=== PATIENT | male | born 2000 | race Caucasian/White ===

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

== ENCOUNTER 2023-02-08 16:22 | Emergency (ER) | payer BC, MEDICAID, SELFPAY ==
[2023-02-08 16:36] VITALS: PULSE 81; RESP 16; TEMP 36.8; O2SAT 95; BMI 23.6
--- NOTE | 2023-02-08 17:38 | CTR_ITS ---
PROCEDURE INFORMATION: Exam: CT Abdomen And Pelvis With Contrast Exam date and time: 02/08/2023 7:47 PM Age: 22 years old Clinical indication: Abdominal pain; Localized; Right lower quadrant (rlq); Patient HX: Rlq pain; Additional info: Rlq pain, dysuria, ? hematuria TECHNIQUE: Imaging protocol: Computed tomography of the abdomen and pelvis with contrast. Radiation optimization: All CT scans at this facility use at least one of these dose optimization techniques: automated exposure control; mA and/or kV adjustment per patient size (includes targeted exams where dose is matched to clinical indication); or iterative reconstruction. Contrast material: OMNI 350; Contrast volume: 100 ml; Contrast route: INTRAVENOUS (IV); REPORTING DATA: Count of CT and Cardiac NM exams in prior 12 months: This patient has received 0 known CTs and 0 known cardiac nuclear medicine studies in the 12 months prior to the current study. COMPARISON: No relevant prior studies available. RADIATION DOSE METRICS: Total DLP (mGy-cm): 403.93 FINDINGS: Liver: Normal. No mass. Gallbladder and bile ducts: Normal. No calcified stones. No ductal dilation. Pancreas: Normal. No ductal dilation. Spleen: Normal. No splenomegaly. Adrenal glands: Normal. No mass. Kidneys and ureters: Normal. No hydronephrosis. Stomach and bowel: Unremarkable. No obstruction. No mucosal thickening. Appendix: No evidence of appendicitis. Intraperitoneal space: Unremarkable. No free air. No significant fluid collection. Vasculature: Unremarkable. No abdominal aortic aneurysm. Lymph nodes: Unremarkable. No enlarged lymph nodes. Urinary bladder: Unremarkable as visualized. Reproductive: Unremarkable as visualized. Bones/joints: No acute fracture. Soft tissues: Unremarkable. CT/CT abdomen pelvis w con* [id number] IMPRESSION: No acute findings.
[2023-02-08 17:43] VITALS: BP 106/69; PULSE 73; O2SAT 97
[2023-02-08 18:00] VITALS: BP 106/62; PULSE 76; O2SAT 96
[2023-02-08 18:24] LABS: Add Urine Microscopic? YES; Bilirubin Urine Neg (Negative); Blood Urine Trace (Negative); Glucose Urine UA Norm (Normal); Ketones Urine Negative (Negative); Leukocyte Esterase Urine 2+ (Negative); Nitrate Urine Negative (Negative); Protein Urine Neg (Negative); Urine Appearance Cloudy (CLEAR); Urine Color Yellow (Yellow); Urobilinogen Urine 4+ mg/dL (Negative); pH Urine 6.5 (5-7)
[2023-02-08 18:27] LABS: Add Urine Culture? No; Bacteria Urine TRACE /hpf; Mucus Urine 1+ /hpf; RBC Urine 0-4 /hpf (0-2); Squamous Epithelial Cell Urine 0-4 /hpf (0-5); WBC Urine TOO NUMEROUS TO CNT /hpf (0-5)
--- NOTE | 2023-02-08 18:31 | W.ED.ABDPA2 ---
HPI - Abdominal Pain General: Chief Complaint: Abdominal Pain Stated Complaint: abd pain Time Seen by Provider: 02/08/23 17:12 History of Present Illness: 22-year-old male reports 3 days of right lower quadrant pain and burning urination. He believes that his urine has been sort of a reddish color. He denies any flank pain. He is not having any fever, chills, anorexia. He thinks there is a very low likelihood that he might have a sexually transmitted infection. He is not seeing any penile discharge rashes or wounds. He denies any trauma. There is no vomiting, nausea, diarrhea, constipation, melena, hematochezia. No testicular pain. He has not appreciated any masses or hernias. Pain is minimal while he is holding still and not moving. It becomes moderate when he urinates. No history of kidney stones. Associated Symptoms: Denies chills, diarrhea, fever(s), nausea, syncope and vomiting Review of Systems General: Reports: 10 or more systems reviewed and unremarkable except in HPI and below Const: Denies: fever(s), chills or body aches Eyes: Denies: change in vision ENMT: Denies: throat pain Card: Denies: chest pain, edema or syncope Resp: Denies: dyspnea or productive cough GI: Denies: nausea, vomiting or diarrhea : Denies: flank pain or urinary frequency Musc: Denies: neck pain, back pain, extremity pain or extremity swelling Skin/Breast: Denies: rash or erythema Neuro: Denies: headache(s), numbness in extremities, weakness in extremities, lack of coordination or difficulty walking PFS ED PFSH: Social History (Updated 11/24/20 @ 10:06 by Kendall Smith LPN) Smoking and tobacco/nicotine status: current every day tobacco/nicotine user Physical Exam Const: COMMON NORMALS: no limitations, alert and well nourished EXAM LIMITATIONS: no altered mental status HENMT: COMMON NORMALS: normocephalic, atraumatic and external ears normal HEAD & SCALP: normocephalic and atraumatic EXTERNAL EAR: Yes external ears normal MOUTH: no muffled voice Eye: COMMON NORMALS: EOMs intact bilaterally, conjunctivae normal and no scleral icterus CONJUNCTIVA: Yes conjunctivae normal Neck/C-Spine: COMMON NORMALS: no JVD GENERAL: Yes normal visual inspection and Yes trachea midline Resp: COMMON NORMALS: normal respiratory effort, No use of accessory muscles and clear to auscultation bilaterally AUSCULTATION: clear to auscultation bilaterally Cardio: COMMON NORMALS: no JVD, regular rate and regular rhythm RATE: regular rate RHYTHM: regular rhythm GI: COMMON NORMALS: Soft to palpation PALPATION: Yes Soft to palpation, No Firmness to palpation present (GI), Yes Tenderness to palpation present (GI) Details: RLQ, No Guarding due to palpation present (GI), No Rigid due to palpation, No Hepatosplenomegaly present, No Hernia present, No Palpable mass present and No Ascites present OTHER: Positive right CVA versus right lumbar tenderness. Extremity: COMMON NORMALS: normal to inspection Neuro: COMMON NORMALS: moves all extremities, no focal motor deficits and no sensory deficits noted SENSORIUM/ORIENTATION: Yes alert SPEECH: speech normal Psych: COMMON NORMALS: mental status grossly normal, Normal thought process present, cooperative, normal affect and speech normal SPEECH: Yes normal speech THOUGHT PROCESS: Normal thought process present Skin: COMMON NORMALS: no rashes or lesions noted, turgor normal and no jaundice GENERAL SKIN EXAM: no rashes or lesions noted and turgor normal Course Vital Signs: Vital signs: Vital Signs Temperature 98.2 F 02/08/23 16:36 Pulse Rate 57 L 02/08/23 19:28 Respiratory Rate 16 02/08/23 16:36 Blood Pressure 125/81 02/08/23 19:28 Pulse Oximetry 97 02/08/23 19:28 Oxygen Delivery Me thod Room Air 02/08/23 19:28 MDM - Abdominal Pain Medical Decision Making Differential diagnosis includes UTI, kidney stone, gonorrhea or chlamydia, pyelonephritis, colitis, constipation, mesenteric adenitis, appendicitis, other. CT scan of the abdomen and pelvis was unremarkable. Labs were unremarkable. Urine analysis was remarkable for urobilinogen, white blood cells, leukocyte Estrace. No bacteria were seen. There was some mucus. Urine culture is pending. Gonorrhea and Chlamydia cultures have been sent. Patient will be treated empirically with Rocephin here and doxycycline on discharge. Follow-up outpatient advised. Refrain from sexual activity until gonorrhea chlamydia results Lab Data 02/08/23 19:35 02/08/23 19:35 Labs/Radiology: Radiology Impressions Abdomen/Pelvis CT 02/08/23 17:38 IMPRESSION: No acute findings. Laboratory Results WBC 9.06 10^3/uL (3.29-11.43) 02/08/23 19:35 RBC 5.43 10^6/uL (3.85-5.65) 02/08/23 19:35 Hgb 15.60 g/dL (11.27-16.99) 02/08/23 19:35 Hct 47.1 % (37-53) 02/08/23 19:35 MCV 86.7 fl (82-101) 02/08/23 19:35 MCH 28.7 pg (27-33) 02/08/23 19: MCHC 33.1 g/dL (30-55) 02/08/23 19:35 RDW 12.0 % (12.1-15.1) L 02/08/23 19:35 Plt Count 239 10^3/cmm (157-399) 02/08/23 19:35 MPV 10.4 fL (7.4-10.4) 02/08/23 19:35 Neut % (Auto) 63.8 % 02/08/23 19:35 Lymph % (Auto) 22.5 % 02/08/23 19:35 [place] % (Auto) 9.2 % 02/08/23 19:35 Eos % (Auto) 3.4 % 02/08/23 19:35 Baso % (Auto) 0.9 % 02/08/23 19:35 Neut # (Auto) 5.78 10^3/uL (1.8-7.7) 02/08/23 19:35 Lymph # (Auto) 2.0 10^3/uL (0.8-4.8) 02/08/23 19:35 [place] # (Auto) 0.8 10^3/uL (0.2-0.9) 02/08/23 19:35 Eos # (Auto) 0.3 10^3/uL (0.0-0.8) 02/08/23 19:35 Baso # (Auto) 0.1 10^3/uL (0.0-0.1) 02/08/23 19:35 Nucleated RBC % (auto) 0 % 02/08/23 19:35 Nucleated RBCs # 0.0 /100WBC 10/26/23 19:35 Sodium 137 mmol/L (136-145) 02/08/23 19:35 Potassium 4.1 mmol/L (3.5-5.1) 02/08/23 19:35 Chloride 101 mmol/L (98-107) 02/08/23 19:35 Carbon Dioxide 28 mmol/L (22-29) 02/08/23 19:35 Anion Gap 12.1 (5-19) 02/08/23 19:35 BUN 9 mg/dL (6-20) 02/08/23 19:35 Creatinine 0.7 mg/dL (0.7-1.2) 02/08/23 19:35 GFR Calculation 142.4 mL/min (90-130) H 02/08/23 19:35 Glucose 86 mg/dL (65-115) 02/08/23 19:35 Calculated Osmolality 282 mOsm/kg (285-295) L 02/08/23 19:35 Calcium 9.0 mg/dL (8.5-10.5) 02/08/23 19:35 Total Bilirubin 0.3 mg/dL (0.15-1.2) 02/08/23 19:35 AST 14 U/L (0-40) 02/08/23 19:35 ALT 19 U/L (0-41) 02/08/23 19:35 Alkaline Phosphatase 61 U/L (40-130) 02/08/23 19:35 Total Protein 7.1 g/dL (6.6-8.7) 02/08/23 19:35 Albumin 4.5 g/dL (3.5-5.2) 02/08/23 19:35 Globulin 2.6 g/dL (1.3-4.6) 02/08/23 19:35 Urine Color Yellow (Yellow) 02/08/23 17:38 Urine Appearance Cloudy (CLEAR) A 02/08/23 17:38 Urine pH 6.5 (5-7) 02/08/23 17:38 Ur Specific [place] 1.020 (1.005-1.030) 02/08/23 17:38 Urine Protein Neg (Negative) 02/08/23 17:38 Urine Glucose (UA) Norm (Normal) 02/08/23 17:38 Urine Ketones Negative (Negative) 02/08/23 17:38 Urine Blood Trace (Negative) H 02/08/23 17:38 Urine Nitrate Negative (Negative) 02/08/23 17:38 Urine Bilirubin Neg (Negative) 02/08/23 17:38 Urine Urobilinogen 4+ mg/dL (Negative) H 02/08/23 17:38 Ur Leukocyte Esterase 2+ (Negative) H 02/08/23 17:38 Urine RBC 0-4 /hpf (0-2) H 02/08/23 17:38 Urine WBC Too numerous to cnt /hpf (0-5) H 02/08/23 17:38 Ur Squamous Epith Cells 0-4 /hpf (0-5) H 02/08/23 17:38 Amorphous Sediment Not Reportable 02/08/23 17:38 Urine Bacteria Trace /hpf (NONE) 02/08/23 17:38 Urine Mucus 1+ /hpf 02/08/23 17:38 All radiology interpretation(s) finalized by discharge Discharge Plan Discharge Patient Disposition: Home Clinical Impression: UTI (urinary tract infection), Dysuria Condition: Stable Prescriptions: New doxycycline hyclate 100 mg tablet 100 mg PO BID 7 Days Qty: 14 0RF Discontinued cyclobenzaprine 10 mg tablet 10 mg PO BID Discharge Orders: Discharge ED (Routine); Ordered 02/08/23 Ordered By: Vern Weaver Referrals: Maury Grullon FNP [Primary Care Provider] - 4-7 days Discharge Diet: Advance as tolerated Discharge Activity: Resume usual activity Patient Instructions: Urinary Tract Infection in Men (ED) Activity Restrictions/Additional Instructions: You have an abnormal urine analysis. This is likely a urinary tract infection. Take antibiotics as directed. You do have a pending gonorrhea and chlamydia test--please refrain from sexual intercourse until you get your results back. Call your doctor if you are not getting better. Coding Level of Care Code ED Veterinarian Small Animal for Marcos Campbell
[2023-02-08 19:28] VITALS: BP 125/81; PULSE 57; O2SAT 97
[2023-02-08 19:51] LABS: Basophils # 0.1 10^3/uL (0.0-0.1); Basophils % 0.9 %; Eosinophils # 0.3 10^3/uL (0.0-0.8); Eosinophils % 3.4 %; Hematocrit 47.1 % (37-53); Lymphocytes % 22.5 %; Mean Corpuscular HGB Conc 33.1 g/dL (30-55); Mean Corpuscular Hemoglobin 28.7 pg (27-33); Mean Corpuscular Volume 86.7 fl (82-101); Mean Platelet Volume 10.4 fL (7.4-10.4); Monocytes # 0.8 10^3/uL (0.2-0.9); Monocytes % 9.2 %; Neutrophils # 5.78 10^3/uL (1.8-7.7); Neutrophils % 63.8 %; Nucleated Red Blood Cells % 0 %; Platelet Count 239 10^3/cmm (157-399); Red Blood Count 5.43 10^6/uL (3.85-5.65); White Blood Count 9.06 10^3/uL (3.29-11.43)
[2023-02-08] MEDS: iohexol 350 mg/mL 500 mL Btl (per mL) IV (19:51)
[2023-02-08 19:59] LABS: Alanine Aminotransferase 19 U/L (0-41); Albumin Level 4.5 g/dL (3.5-5.2); Alkaline Phosphatase 61 U/L (40-130); Anion Gap 12.1 (5-19); Aspartate Amino Transferase 14 U/L (0-40); Blood Urea Nitrogen 9 mg/dL (6-20); Carbon Dioxide 28 mmol/L (22-29); Chloride 101 mmol/L (98-107); Globulin 2.6 g/dL (1.3-4.6); Glomerular Filtration Rate 142.4 mL/min (90-130); Glucose 86 mg/dL (65-115); Osmolality Calculated 282 mOsm/kg (285-295); Potassium 4.1 mmol/L (3.5-5.1); Sodium 137 mmol/L (136-145); Total Bilirubin 0.3 mg/dL (0.15-1.2); Total Protein 7.1 g/dL (6.6-8.7)
[2023-02-08] MEDS: cefTRIAXone 1,000 MG in sodium chloride 0.9% (plus) 50 ML 100 MG IV (20:42)
[2023-02-08] MEDS: doxycycline 100 mg Tablet PO (20:43)
== END 2023-02-08 21:05 | disposition home or self-care (01) ==
PROVIDERS: Emergency Provider Emergency Medicine; PCP Nurse Practitioner
DX: N39.0 Urinary tract infection, site not specified (principal); Z72.0 Tobacco use
CPT/HCPCS: 36415; 74177; 80053; 81001; 85025; 87086; 96374; 99285; J0696; Q9967

== ENCOUNTER 2024-03-05 20:34 | Emergency (ER) | payer BC, MEDICAID, SELFPAY ==
[2024-03-05 21:00] VITALS: BP 102/67; PULSE 80; RESP 16; TEMP 36.6; O2SAT 98; BMI 22.6
--- NOTE | 2024-03-05 21:56 | ED_ITS ---
HPI - Wound/Laceration General: Chief Complaint: Wound/Laceration Stated Complaint: right knee infection and bleeding Time Seen by Provider: 03/05/24 21:15 Source: patient Mode of arrival: ambulatory Limitations: no limitations History of Present Illness: Patient is a 23-year-old male presents the emergency department with bleeding to right knee. States he was injured in a forklift accident, was seen by primary care today due to worsening swelling and pain and was prescribed multiple antibiotics. He states he went to change the dressing tonight, and upon removing it a green substance came off and his knee began bleeding. States he was concerned about the bleeding, which has since stopped with direct pressure. Vitals normal, denies any fever, vomiting, or other illness signs. Extremity Location: Right: knee Patient tetanus UTD: Yes Context: accidental Associated symptoms: Denies chills, fever(s), nausea or vomiting Treatments prior to arrival: bandage Related Data Allergies Allergy/AdvReac Type Severity Reaction Status Date / Time No Known Allergies Allergy Verified 09/17/22 21:00 Review of Systems General: Reports: 10 or more systems reviewed and unremarkable except in HPI and below Const: Denies: fever(s) or chills Card: Denies: chest pain Resp: Denies: dyspnea GI: Denies: abdominal pain, nausea, vomiting or diarrhea Musc: Reports: joint pain (Right knee) and joint swelling (Right knee); Denies: extremity pain Skin/Breast: Reports: lesions (Anterior lesion right knee with no active bleeding); Denies: rash, skin pain or skin tenderness Neuro: Denies: headache(s) [facility] ED PFSH: Social History Smoking and tobacco/nicotine status: current every day tobacco/nicotine user Physical Exam Const: COMMON NORMALS: no acute distress, average body habitus, patient oriented x3, no limitations, healthy appearing, alert and well nourished HENMT: COMMON NORMALS: normocephalic and atraumatic HEAD & SCALP: n ormocephalic and atraumatic Neck/C-Spine: COMMON NORMALS: full ROM, no lymphadenopathy, supple and no meningeal signs Resp: COMMON NORMALS: normal respiratory effort, No use of accessory muscles and clear to auscultation bilaterally AUSCULTATION: clear to auscultation bilaterally Cardio: COMMON NORMALS: regular rate and regular rhythm RATE: regular rate RHYTHM: regular rhythm Extremity: COMMON NORMALS: full ROM and capillary refill normal NARRATIVE EXTREMITY EXAM: Tenderness to palpation of right knee, pain with range of motion Neuro: COMMON NORMALS: patient oriented x3 SENSORIUM/ORIENTATION: Yes alert MENINGEAL SIGNS: Yes no meningeal signs Skin: COMMON NORMALS: turgor normal NARRATIVE SKIN EXAM: Small puncture lesion to anterior right knee, very minimal active bleeding upon removal of bandage. Some surrounding cellulitis, skin not overtly warm to the touch. GENERAL SKIN EXAM: turgor normal Course Vital Signs: Vital signs: Vital Signs Temperature 97.8 F 03/05/24 21:00 Pulse Rate 80 03/05/24 21:00 Respiratory Rate 16 03/05/24 21:00 Blood Pressure 102/67 03/05/24 21:00 Pulse Oximetry 98 03/05/24 21:00 Oxygen Delivery Me thod Room Air 03/05/24 21:00 MDM - Wound/Laceration Medical Decision Making Patient had showed a picture of his evolving knee wound from yesterday and earlier today, that does not appear to be any major change between them aside from dried blood surrounding the lesion today. He is currently on 2 different oral antibiotics, and has been applying topical antibiotic that he is unsure of, likely is mupirocin. I believe that he is applying it and then directly putting dressing on, and this is acting like glue that when he removes it it irritates the scab that is trying to form over the lesion. Informed him to make sure that wound is nice and dry before applying the nonadhesive bandage, and to continue taking oral antibiotics as he has not technically failed outpatient therapy with only having taken 1 dose each. Again he is unsure of what the 2 oral antibiotics are at this time. He has not had any systemic signs of illness such as fever or vomiting, and other than the lesion with some surrounding cellulitis there is no real concern of an intra-articular infection at this time. However, with any worsening over the next couple of days he is instructed to return immediately to the emergency department for further evaluation. Otherwise we discussed proper wound care, and all other questions and concerns were addressed. No radiology studies performed this visit Discharge Plan Discharge Patient Disposition: Home Clinical Impression: Cellulitis of knee, right Condition: Stable Discharge Orders: Discharge ED (Routine); Ordered 03/05/24 Ordered By: Zhou Cabrales Referrals: Maury Grullon FNP [Primary Care Provider] - Patient Instructions: Pain Management Activity Restrictions/Additional Instructions: Please keep taking your antibiotics. When applying the topical antibiotic, make sure wound is dry before covering with bandage. Tylenol/ibuprofen for pain relief. If you start developing fevers, severe worsening of pain or swelling, or any other concerning symptoms, please return to the emergency department. Coding Level of Care Code ED Airline Captain for Marcos Campbell
[2024-03-05 22:00] VITALS: BP 121/72; PULSE 67; O2SAT 98
[2024-03-05 22:04] VITALS: BP 121/72; PULSE 67; O2SAT 98
== END 2024-03-05 22:01 | disposition home or self-care (01) ==
PROVIDERS: Emergency Provider Physician Assistant; PCP Nurse Practitioner
DX: L03.115 Cellulitis of right lower limb (principal); Z72.0 Tobacco use
CPT/HCPCS: 99282